=== PATIENT | male | born 1990 | race Caucasian/White ===

== ENCOUNTER 2022-01-12 12:25 | Emergency (ER) | payer OTHER, SELFPAY ==
[2022-01-12 12:34] VITALS: BP 123/65; PULSE 71; RESP 16; TEMP 36.4; O2SAT 98
--- NOTE | 2022-01-12 12:45 | DI.RAD_ITS ---
Exam(s) XR ANKLE RT COMPLETE EXAM: XR ANKLE RT COMPLETE CLINICAL HISTORY: twisted R ankle, tender R lateral malleolus TECHNIQUE: COMPARISON: No exams were available for comparison FINDINGS: Four views were obtained. The ankle mortise is well maintained. There is no evidence of acute fract ure or dislocation. IMPRESSION: RADIATION DOSE DELIVERED: Total DLP
--- NOTE | 2022-01-12 12:48 | ED.GENADUL_ITS ---
Discharge Plan Disposition Patient Disposition: HOME Condition: Stable Discharge Details Clinical Impression: Right ankle sprain Primary Care Provider: Sachin Newell ED Provider: Brenda Wallis Home Meds and New Rx's Prescriptions: No Action No Known Home Meds Discharge Instructions Instructions: Ankle Sprain (ED) Additional Instructions: Rest, ice, and elevate the affected area as much as possible. Alternate tylenol and motrin as needed and directed for pain. Follow-up with your primary care doctor in 1 week as needed and for referral to orthopedics if your symptoms do not improve or worsen. Return to the emergency department with any worsening or new concerning symptoms. Referrals: Dennis Montgomery MD [ [facility] STAFF PHYSICIAN] - Discharge Data Discharge Date/Time-TO BE ENTERED AT DEPARTURE: 01/12/22 14:15 Discharge Physician: Brenda Wallis Medical Decision Making 31-year-old male presents with right ankle pain after twisting his ankle while walking on a wooden plank that broke today. He has mild to moderate edema and tenderness to the right lateral malleolus but no obvious deformity. He is neurovascularly intact. Patient referred for x-ray which was negative. He was placed in ankle stabilizer splint. He declined crutches. Patient given orthopedic follow-up information as needed. Instructed on the importance of RICE. Usual and customary return precautions given prior to discharge. Medical Records Medical records reviewed: Yes I reviewed the patient's medical records. Imaging Data Radiologic Study: Radiologist's impression: XR ANKLE RT COMPLETE CLINICAL HISTORY:? twisted R ankle, tender R lateral malleolus TECHNIQUE:? COMPARISON:? No exams were available for comparison FINDINGS: Four views were obtained.? The ankle mortise is well maintained.? There is no evidence of acute fracture or dislocation. HPI General Mode of arrival: ambulatory . Date/Time Provider Initiated Documentation: 01/12/22 12:44 . Limitations to Documentation: no limitations . Information obtained by: patient . HPI Narrative: Patient is a 31-year-old male who presents the ED with a complaint of right ankle pain after he twisted his ankle at work today. He took 2 Aleve prior to arrival. Related Data Home Medications Medication Instructions Recorded Confirmed Unknown [No Known Home Meds] 01/22/18 01/12/22 Allergies Allergy/AdvReac Type Severity Reaction Status Date / Time soy Allergy Severe Anaphylaxsi Unverified 01/12/22 12:39 s tree nut Allergy Severe Anaphylaxsi Unverified 01/12/22 12:39 s peas Allergy Intermediate vomiting Unverified 01/12/22 12:39 chic peas Allergy Uncoded 01/12/22 12:39 General Stated Complaint: Orthopedic JOEL: 4 Review of Systems All systems reviewed & are unremarkable except as noted in HPI and below Constitutional Constitutional: Reports as per HPI, Denies chills and Denies fever(s) Eyes Eyes: Denies blurry vision ENT Ears, Nose, Mouth, and Throat: Denies dizziness, Denies sore throat and Denies throat swelling Cardiovascular Cardiovascular: Denies chest pain and Denies dyspnea Respiratory Respiratory: Denies cough and Denies dyspnea Gastrointestinal Gastrointestinal: Denies abdominal pain, Denies diarrhea and Denies vomiting Genitourinary Genitourinary: Denies hematuria and Denies dysuria Musculoskeletal Musculoskeletal: Denies back pain and Denies numbness Integumentary/Breasts Skin/Breast: Denies lesions and Denies rash Neurologic Neurologic: Denies dizziness, Denies localized weakness and Denies numbness Allergic/Immunologic Allergic/Immunologic: Denies throat swelling PFSH All Active Problems (Updated 01/12/22 @ 19:18 by Brenda Wallis DO) Flexor tenosynovitis of finger (Acute) Right ankle sprain (Acute) Medical History (Updated 01/12/22 @ 19:18 by Brenda Wallis DO) No significant past medical history Surgical History (Updated 01/12/22 @ 19:18 by Brenda Wallis DO) History of hand surgery finger surgery Social History Smoking/Tobacco Use Status: Current every day Smoking risk assessment performed?: Yes Alcohol Intake: current Alcohol Intake frequency: holidays/special occasions only Drug use: Daily Substance use type: marijuana Do you feel safe at home: Yes Do you feel safe in your relationship?: Yes Exam Const General: cooperative, healthy appearing and no acute distress Orientation: alert, awake and oriented x3 HENMT Head: normal to inspection Mouth: oral mucosae normal Eyes General: appearance normal, both eyes and all related structures Neck Neck: normal visual inspection Resp Effort & Inspection: normal respiratory effort and able to speak in complete sentences Cardio Rate: regular rate Skin General skin exam: no rashes or lesions noted Neuro General: patient alert, patient awake and patient oriented x3 Motor: muscle tone normal throughout Extrem Ankle/foot/toe images: 1. Mild to moderate edema and tenderness overlying lateral malleolus. Other: No tenderness to palpation overlying right fifth metatarsal, dorsum of foot or heel. Psych Appearance: grossly normal Affect: normal affect Course Vital Signs Vital signs: Vital Signs Temperature 97.5 F L 01/12/22 12:34 Pulse 71 01/12/22 12:34 Respiratory Rate 16 01/12/22 12:34 Blood Pressure 123/65 01/12/22 12:34 Pulse Oximetry 98 01/12/22 12:34 Temperature 97.5 F L 01/12/22 12:34 Temperature Source Skin 01/12/22 12:34 Pulse 71 01/12/22 12:34 Respiratory Rate 16 01/12/22 12:34 Blood Pressure 123/65 01/12/22 12:34 Blood Pressure Position Sitting 01/12/22 12:34 Pulse Oximetry 98 01/12/22 12:34 Oxygen Delivery Method Room Air 01/12/22 12:34 Oxygen Flow Rate 0 01/12/22 12:34 Pain Level 8 01/12/22 12:34 Comment denies otc pain relief 01/12/22 12:34
== END 2022-01-12 14:15 | disposition home or self-care (01) ==
PROVIDERS: Emergency Provider Physician Assistant; PCP Family Medicine
DX: S93.491A Sprain of other ligament of right ankle, initial encounter (principal); X50.1XXA Overexertion from prolonged static or awkward postures, initial encounter
CPT/HCPCS: 29515; 99283; 73610